=== PATIENT | female | born 1990 | race Caucasian/White ===

== ENCOUNTER → 2022-12-01 15:43 | Outpatient (CLI) | payer OTHER, SELFPAY ==
--- NOTE | 2022-12-01 | DI.US.S_ITS ---
PROCEDURE: US PELVIC COMPLETE INDICATIONS: Pelvic pain TECHNIQUE: Real-time scanning was performed of the pelvic organs, with image documentation. Additional endovaginal scanning was necessary due to incomplete visualization of the adnexal and endometrial structures by transabdominal scanning. COMPARISON: None. FINDINGS: Uterus: Uterus is anteverted and normal in size at 8.5.3 x 4.4 cm. The myometrium is mildly heterogeneous. The endometrium measures 3 mm combined thickness. No fibroids. Nabothian cysts. Ovaries: The right ovary measures 2.8 x 2.2 x 1.9 cm, with a calculated ovarian volume of 6 cc. The left ovary measures 3.3 x 1.5 x 1.5 cm, with a calculated ovarian volume of 4 cc. Less than 12 follicles can be seen in each ovary. No mass identified. Subtle hypoechoic region on the left ovary. Blood flow seen in both ovaries. Other: No pathologic free abdominal or pelvic fluid. IMPRESSION 1. Subtle hypoechoic region at the left ovary. Clinical significance of this finding is uncertain. No suspicious blood flow at this site. This could represent an area of scarring or collapsed cyst. 2. No endometrial thickening. No fibroids. We strive to produce accurate, complete, and clear reports of imaging services. To assist us in improving patient care, this report was composed using standard report templates and voice recognition software. Therefore, it may contain abnormal punctuation, insertions and/or omissions. Occasional wrong-word or sound-alike substitutions may occur. Though we review the report and make efforts to correct it, we do recommend that the report be read carefully in proper context to recognize any text inaccuracies. Dictated by: Kale Jones M.D. on 12/02/2022 at 9:54 Approved by: Kale Jones M.D. on 12/02/2022 at 10:22
== END ==
PROVIDERS: Referring Provider Nurse Practitioner Family; Visit Provider Nurse Practitioner Family
DX: R10.2 Pelvic and perineal pain (principal)
CPT/HCPCS: 76830; 76856